=== PATIENT | male | born 1980 | race Caucasian/White ===

== ENCOUNTER 2021-04-09 09:22 | Emergency (ER) | payer OTHER ==
[~2021-04-09] VITALS: Ht 172.7 cm; Wt 74.8 kg
[2021-04-09] MEDS ORDERED: IBUP800 PO (10:39)
== END 2021-04-09 10:59 | disposition home or self-care (01) ==
LOC: ER 09:22
DX: M25.552 Pain in left hip (principal); M79.645 Pain in left finger(s); F17.210 Nicotine dependence, cigarettes, uncomplicated; M54.5 Low back pain; V53.5XXA Driver of pick-up truck or van injured in collision with car, pick-up truck or van in traffic accident, initial encounter; Y92.410 Unspecified street and highway as the place of occurrence of the external cause
CPT/HCPCS: 73140; 73502; 99283-25

== ENCOUNTER 2025-08-30 11:52 | Emergency (ER) | payer SELFPAY ==
[~2025-08-30] VITALS: Ht 160 cm; Wt 81.7 kg
[~2025-08-30 11:52] MED LIST: IBUP800 PO
[2025-08-30 12:06] VITALS: BP 122/89
== END 2025-08-30 12:12 | disposition home or self-care (01) ==
LOC: ER 11:52
DX: M79.641 Pain in right hand (principal); Z76.0 Encounter for issue of repeat prescription; Z59.89 Other problems related to housing and economic circumstances; F17.210 Nicotine dependence, cigarettes, uncomplicated; Z88.1 Allergy status to other antibiotic agents
CPT/HCPCS: 99281